=== PATIENT | male | born 1995 | race Caucasian/White ===

== ENCOUNTER 2024-09-21 15:21 | Outpatient (CLI) | payer SELFPAY ==
[2024-09-21 16:16] LABS: Basophils Absolute Auto 0.05 K/mm3 (0.00-0.10); Basophils Percent Auto 0.4 % (0.0-1.0); Eosinophils Absolute Auto 0.06 K/mm3 (0.02-0.50); Eosinophils Percent Auto 0.5 % (1.0-6.0); Hematocrit 34.1 % (40.0-54.0); Hemoglobin 11.9 g/dL (14.0-18.0); Immature Granulocyte Absolute 0.06 K/mm3 (0.00-0.00); Immature Granulocyte Percent A 0.5 % (0.0-0.0); Lymphocytes Absolute Auto 0.93 K/mm3 (1.10-4.50); Lymphocytes Percent Auto 8.1 % (18.0-42.0); Mean Corpuscular HGB Conc 34.9 g/dL (32-36); Mean Corpuscular Hemoglobin 37.9 pg (27.0-31.0); Mean Corpuscular Volume 108.6 fL (78.0-102.0); Mean Platelet Volume 9.4 fl (8.7-11.0); Monocytes Absolute Auto 0.77 K/mm3 (0.10-0.90); Monocytes Percent Auto 6.7 % (2.0-11.0); Neutrophils Absolute Auto 9.61 K/mm3 (1.70-7.20); Neutrophils Percent Auto 83.8 % (50.0-70.0); Platelet Count Result 285 K/mm3 (150-420); Red Blood Count 3.14 M/mm3 (4.70-6.10); Red Cell Distribution Width 16.8 % (11.6-14.4); White Blood Count 11.5 K/mm3 (4.8-10.8)
[2024-09-21 16:40] LABS: Alanine Aminotransferase 29 U/L (16-63); Alkaline Phosphatase 177 U/L (46-116); Aspartate Amino Transferase 49 U/L (15-37); Bilirubin,Total 1.3 mg/dL (0.00-1.00); Carbon Dioxide 30 mmol/L (21-32); Estimated Glomerular Filt Rate > 60; Glucose 105 mg/dL (70-99); Hemoglobin A1C < 4.4 % (<5.7); Total Protein 6.1 g/dL (6.4-8.2)
[2024-09-21 16:48] LABS: Anion Gap 14 mmol/L (4-12); Blood Urea Nitrogen 2 mg/dL (7-18); Calcium 7.4 mg/dL (8.5-10.1); Chloride 97 mmol/L (98-108); Osmolality Calculated 288 mOsm/kg (285-295); Sodium 141 mmol/L (136-145)
[2024-09-21 17:02] LABS: Potassium 2.1 mmol/L (3.5-5.1)
== END 2024-09-21 15:22 | disposition home or self-care (01) ==
PROVIDERS: PCP Family Medicine; Visit Provider Family Medicine
DX: I10 Essential (primary) hypertension (principal); R81 Glycosuria
CPT/HCPCS: 36415; 80053; 83036; 84443; 85025

== ENCOUNTER 2024-10-01 12:47 | Outpatient (CLI) | payer MEDICAID, SELFPAY ==
[2024-10-01 13:21] LABS: Carbon Dioxide 34 mmol/L (21-32); Estimated Glomerular Filt Rate > 60; Glucose 107 mg/dL (70-99)
[2024-10-01 13:28] LABS: Anion Gap 11 mmol/L (4-12); Blood Urea Nitrogen 1 mg/dL (7-18); Calcium 7.8 mg/dL (8.5-10.1); Chloride 100 mmol/L (98-108); Osmolality Calculated 295 mOsm/kg (285-295); Potassium 2.6 mmol/L (3.5-5.1); Sodium 145 mmol/L (136-145)
== END 2024-10-01 12:48 | disposition home or self-care (01) ==
LOC: CHSLAB 12:50
PROVIDERS: PCP Family Medicine; Visit Provider Family Medicine
DX: R81 Glycosuria (principal)
CPT/HCPCS: 36415; 80048

== ENCOUNTER 2024-10-25 13:07 | Emergency (ER) | payer MEDICAID, SELFPAY ==
--- NOTE | ~2024-10-25 | CT_ITS ---
EXAMINATION: CT abdomen pelvis w con DATE: 10/25/2024 14:39 INDICATION: Nausea and vomiting. Right loss. TECHNIQUE: Computed tomography (CT) of the abdomen and pelvis was performed with 100 mL Omnipaque 350 intravenous contrast. Automated exposure control and iterative reconstruction technique were employe d. The dose-length product was 278.83 mGy-cm. COMPARISON: None. FINDINGS: The visualized portions of the lung bases are clear without pneumonia or pleural effusion. The heart size is normal. No pericardial effusion. There is diffuse hepatic steatosis. The gallbladde r, spleen, pancreas, adrenal glands, and kidneys are normal. There is diverticulosis of the colon. Th ere is wall thickening of the sigmoid colon. The appendix is normal. There are no pathologically enla rged lymph nodes. There is no free intraperitoneal fluid. There is mild lumbar spondylosis. IMPRESSION: 1. Wall thickening of the sigmoid colon suspicious for colitis. 2. Diffuse hepatic steatosis. Reviewed, dictated and finalized at location [facility]
[2024-10-25 13:08] VITALS: BP 130/94; PULSE 112; RESP 12; TEMP 36.4; O2SAT 100
[2024-10-25 13:19] VITALS: BP 130/94; PULSE 107; RESP 9; O2SAT 100
[2024-10-25 13:23] LABS: Glucose Point of Care 155 mg/dl (65-105)
[2024-10-25] MEDS: ONDANSETRON INJ 4 MG/2 ML VIAL IV PUSH (13:32)
[2024-10-25] MEDS: KETOROLAC 30 MG/ML VIAL (*BKC) IV PUSH (13:32)
[2024-10-25] MEDS: SODIUM CHLORIDE 0.9% IV 1,000 ML 999 ML IV CONT (13:33)
--- NOTE | 2024-10-25 13:39 | ED_ITS ---
HPI - Nausea/Vomiting/Diarrhea General Chief complaint: Nausea/Vomiting/Diarrhea Stated complaint: SENT BY PCP Time Seen by Provider: 10/25/24 13:08 Source: patient Mode of arrival: ambulatory Limitations: no limitations History of Present Illness HPI Narrative: Patient is a 29-year-old male with significant past medical history presents today with nausea vomiting for the last 3 weeks. He was sent here by his primary care physician. She called here and has had he apparently has lost 40 lb says he was last seen in January. His having low potassiums and started on potassium supplementation. He denies any abdominal pain but says he is very weak he looks very lethargic and weak and very pale. He has not been helpful they look good or solid foods down. His primary care physicians X had he might be diabetic But she has not checked his head. PSC a glucose was 155 which is actually a decent [place] for him not being able to eat for last 3 weeks. He does smoke marijuana as might have cyclic vomiting syndrome as well. MD elicited complaint: nausea and vomiting Pertinent past history: cyclical vomiting Onset (ago): week(s) Description of vomiting: food contents and watery Associated nausea: Yes Associated abdominal pain: No Location of pain: none Severity: mild Pain scale (0-10): 2 Exacerbating factors: eating, vomiting and movement Relieving factors: none Context: marijuana use Associated symptoms: nausea/vomiting, weakness and fatigue Review of Systems 2 Review of Systems: All systems reviewed & are unremarkable except as noted in HPI and below Constitutional: Constitutional: Reports as per HPI Eyes: Eyes: Reports no additional eye complaints ENT: Reports system reviewed and no additional complaints, except as documented Cardiovascular: Cardiovascular: Reports no additional cardiovascular complaints Respiratory: Respiratory: Reports no additional respiratory complaints Gastrointestinal: Gastrointestinal: Reports as per HPI, Reports nausea and Reports vomiting Genitourinary: Genitourinary: Reports no additional male genitourinary complaints Musculoskeletal: Musculoskeletal: Reports no additional musculoskeletal complaints Integumentary/Breasts: Skin/Breast: Reports system reviewed and no additional complaints, except as docu Neurologic: Reports system reviewed and no additional complaints, except as documented Psychiatric: Psychiatric: Reports no additional psychiatric complaints Endocrine: Endocrine: Reports no additional endocrine complaints Hematologic/Lymphatic: Hematologic/Lymphatic: Reports no additional hematologic/lymphatic complaints Allergic/Immunologic: Allergic/Immunologic: Reports no additional allergic/immunologic complaints Exam 2 Const: General: ill appearing Nutritional Appearance: thin O rientation/consciousness: patient oriented x3 Limitations: no limitations HENMT: Head: normal to inspection Ears: external ears normal F cristian/Nose/Sinus: Normal external nose present Face and sinus: normal facial exam Mouth: Yes Normal oral and palatal mucosa present Eyes: Conjunctivae: conjunctivae normal Cornea: corneas normal Pupils: E qual, round and reactive pupils present EOM: EOMs intact bilaterally Neck: Neck: normal visual inspection Chest: Chest palpation & inspection: normal inspection of the chest Resp: Effort & Inspection: normal respiratory effort Auscultation: clear to auscultation bilaterally Cardio: Rate: regular rate Rhythm: regular rhythm GI: GI Palp: Yes Soft to palpation and Yes Tenderness to palpation present (GI) Auscultation: Hypoactive bowel sounds present Back/Spine/Pelvis: Back: no CVA tenderness Skin: General skin exam: normal color Rashes: no rashes Wounds: no wounds Neuro: General: patient oriented x3 Cranial nerves: Yes Nystagmus not present Speech: normal speech Gait exam (Neuro): Normal gait present Extrem: General: normal to inspection Psych: Mental Status: mental status grossly normal Affect: normal affect Attitude: cooperative Course Vital Signs Vital signs: Vital Signs Temperature 97.6 F 10/25/24 13:08 Pulse Rate 112 H 10/25/24 13:08 Respiratory Rate 10/25/24 13:08 Blood Pressure 130/94 H 10/25/24 13:08 Pulse Oximetry 100 10/25/24 13:08 Oxygen Delivery Room Air 10/25/24 13:08 Temperature 97.6 F 10/25/24 13:08 Pulse Rate 112 H 10/25/24 13:08 Respiratory Rate 12 10/25/24 13:08 Blood Pressure 130/94 H 10/25/24 13:08 Pulse Oximetry 100 10/25/24 13:08 Oxygen Delivery Room Air 10/25/24 13:08 MDM - Nausea/Vomiting/Diarrhea MDM Narrative Medical decision making narrative: Patient has had this nausea and vomiting for the last 3 weeks. Apparently over about a 6 month time frame he has lost 40 lb. This is confirmed by his primary care physician. He has cyclic vomiting syndrome from smoking marijuana but will not admit to that or he has possible gallbladder issues patient but because of this we will do a CT scan of abdomen pelvis with contrast. Differential Diagnosis Differential diagnosis: Likely gastroenteritis, dehydration and other (enteritis ) Medical Records Attestation: I reviewed the patient's medical records. Lab Data Attestation: I reviewed the patient's lab results. 10/25/24 13:34 10/25/24 13:34 Labs: Lab Results 10/25/24 10/25/24 Range/Units 13:17 13:34 WBC 13.9 H (4.8-10.8) K/mm3 RBC 3.55 L (4.70-6.10) M/mm3 Hgb 13.5 L (14.0-18.0) g/dL Hct 37.5 L (40.0-54.0) % MCV 105.6 H (78.0-102.0) fL MCH 38.0 H (27.0-31.0) pg MCHC 36.0 (32-36) g/dL RDW 14.4 (11.6-14.4) % Plt Count 395 (150-420) K/mm3 MPV 9.6 (8.7-11.0) fl Immature Gran % (Auto) Not Reportable Neut % (Auto) Not Reportable Lymph % (Auto) Not Reportable Barren % (Auto) Not Reportable Eos % (Auto) Not Reportable Baso % (Auto) Not Reportable Lymph # (Auto) Not Reportable Barren # (Auto) Not Reportable Eos # (Auto) Not Reportable Baso # (Auto) Not Reportable Abs Immat Gran (auto) Not Reportable Absolute Neuts (auto) Not Reportable Absolute Nucleated RBC Not Reportable Total Counted 100 Neutrophils % (Manual) 86 H (46-73) % Band Neutrophils % 0 (0-6) % Lymphocytes % (Manual) 7 L (18-44) % Monocytes % (Manual) 7 (3-9) % Nucleated RBC % Not Reportable Abs Neuts (Manual) 11.95 H (1.3-6.7) K/mm3 Abs Lymphs (Manual) 0.97 L (1.1-4.5) K/mm3 Abs Monocytes (Manual) 0.97 H (0.1-0.90) K/mm3 Platelet Estimate Adequate (Adequate) Schistocytes Not Reportable Sodium 138 (136-145) mmol/L Potassium 1.8 L* (3.5-5.1) mmol/L Chloride 93 L (98-108) mmol/L Carbon Dioxide 31 (21-32) mmol/L Anion Gap 14 H (4-12) mmol/L BUN 7 (7-18) mg/dL Creatinine 1.25 (0.70-1.30) mg/dL Estim Creat Clear Calc 74 ml/min Estimated GFR > 60 (59 - ) Glucose 143 H (70-99) mg/dL POC Capillary Glucose 155 H (65-105) mg/dl Hemoglobin A1c < 4.7 (<5.7) % Calculated Osmolality 286 (285-295) mOsm/kg Calcium 7.7 L (8.5-10.1) mg/dL Total Bilirubin 0.6 (0.00-1.00) mg/dL AST 34 (15-37) U/L ALT 27 (16-63) U/L Alkaline Phosphatase 153 H (46-116) U/L Total Protein 6.0 L (6.4-8.2) g/dL Albumin 2.7 L (3.4-5.0) g/dL Lipase 52 (16-77) U/L Imaging Data Attestation: I personally reviewed and interpreted this imaging study as follows: Discharge Plan Discharge Clinical Impression: Enteritis, Dehydration Patient Disposition: Home, Self-Care Condition: Stable Instructions: Gastroenteritis (ED) Additional Instructions: take antibiotics as prescribed. Drink plenty of fluids stay well hydrated. Take Zofran as needed for nausea vomiting. Patient Language: [place] Prescriptions: New ondansetron 4 mg tablet,disintegrating 4 mg PO Q6H PRN (Reason: nausea and vomiting) Qty: 20 0RF ciprofloxacin HCl 500 mg tablet 500 mg PO Q12H Qty: 20 0RF metronidazole [Flagyl] 375 mg capsule 375 mg PO TID Qty: 30 0RF Follow-up/Referrals: Alfredo,Alexandra Aldana MD [Primary Care Provider] - Time of Disposition: 15:18
[2024-10-25 13:40] LABS: Hematocrit 37.5 % (40.0-54.0); Hemoglobin 13.5 g/dL (14.0-18.0); Mean Corpuscular Volume 105.6 fL (78.0-102.0); Mean Platelet Volume 9.6 fl (8.7-11.0); Platelet Count Result 395 K/mm3 (150-420); Red Blood Count 3.55 M/mm3 (4.70-6.10); Red Cell Distribution Width 14.4 % (11.6-14.4); White Blood Count 13.9 K/mm3 (4.8-10.8)
[2024-10-25 13:54] LABS: Hemoglobin A1C < 4.7 % (<5.7)
[2024-10-25 13:57] LABS: Alanine Aminotransferase 27 U/L (16-63); Albumin Level 2.7 g/dL (3.4-5.0); Alkaline Phosphatase 153 U/L (46-116); Anion Gap 14 mmol/L (4-12); Aspartate Amino Transferase 34 U/L (15-37); Bilirubin,Total 0.6 mg/dL (0.00-1.00); Blood Urea Nitrogen 7 mg/dL (7-18); Calcium 7.7 mg/dL (8.5-10.1); Carbon Dioxide 31 mmol/L (21-32); Chloride 93 mmol/L (98-108); Estimated CRCL calculation 74 ml/min; Estimated Glomerular Filt Rate > 60; Glucose 143 mg/dL (70-99); Lipase 52 U/L (16-77); Osmolality Calculated 286 mOsm/kg (285-295); Sodium 138 mmol/L (136-145)
[2024-10-25 13:58] LABS: Potassium 1.8 mmol/L (3.5-5.1)
[2024-10-25 13:59] LABS: Band Neutrophils Percent 0 % (0-6); Lymphocytes Absolute Manual 0.97 K/mm3 (1.1-4.5); Lymphocytes Percent Manual 7 % (18-44); Monocytes Absolute Manual 0.97 K/mm3 (0.1-0.90); Monocytes Percent Manual 7 % (3-9); Neutrophils Absolute Manual 11.95 K/mm3 (1.3-6.7); Neutrophils Percent Manual 86 % (46-73); Total Cells Counted 100
[2024-10-25 14:00] LABS: Platelet Estimate Adequate (Adequate)
[2024-10-25] MEDS: POTASSIUM CHLORIDE 20 MEQ ER TABLET PO (14:14)
[2024-10-25] MEDS: POTASSIUM CHLORIDE 20 MEQ ER TABLET 40 MEQ PO (14:14)
[2024-10-25 14:46] VITALS: BP 112/68; PULSE 110; O2SAT 100
[2024-10-25 15:01] VITALS: BP 122/82; PULSE 105; RESP 14; O2SAT 100
[2024-10-25 15:16] VITALS: BP 121/76; PULSE 99; RESP 18; O2SAT 100
[2024-10-25] MEDS: metroNIDAZOLE 250 MG TABLET 500 MG PO (15:40)
[2024-10-25] MEDS: CIPROFLOXACIN 500 MG TAB PO (15:40)
== END 2024-10-25 15:43 | disposition home or self-care (01) ==
PROVIDERS: Emergency Provider Family Medicine; PCP Family Medicine
DX: K52.9 Noninfective gastroenteritis and colitis, unspecified (principal); E86.0 Dehydration
CPT/HCPCS: 36415; 74177; 80053; 82948; 83036; 83690; 85025; 96361; 96374; 96375; 99284; A9270; J1885; J2405; J7030; Q9967